=== PATIENT | male | born 1955 | race Caucasian/White ===

== ENCOUNTER 2020-04-06 07:35 | Emergency (ER) | payer OTHER, MEDICARE, SELFPAY ==
[2020-04-06] VITALS (7 sets, daily range): BP systolic 113–138; BP diastolic 59–85; PULSE 75–86; RESP 17–20; TEMP 36.7–36.8; O2SAT 18–98; BMI 34.2
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
--- NOTE | 2020-04-06 07:40 | XR_ITS ---
PROCEDURE: XR KNEE RT 3V CLINICAL INDICATION: fall Knee scratch COMPARISON: No exams were available for comparison FINDINGS: No fracture or dislocation. No lytic or blastic change. There is normal mineralization. The joint spaces are well-preserved. No significant degenerative/arthritic changes. No erosive changes evident. Other findings:None. IMPRESSION: No acute findings. Dictated by: Ignacio Mcwilliams MD 04/06/2020 08:55 Ignacio Mcwilliams MD in [facility] 04/06/2020 08:55
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
[2020-04-06 08:52] LABS: Chloride 100 mmol/L (98-107); Potassium 4.5 mmoL/L (3.5-5.1); Sodium 135 mmol/L (136-145)
[2020-04-06 08:55] LABS: Blood Urea Nitrogen 13 mg/dl (9-20); Creatinine Clearance Estimated 120 mL/min (50-200); Estimated Glomerular Filt Rate 84 ml/min (>60); GFR (African American) 102 ML/MIN (>60)
[2020-04-06 08:56] LABS: Alanine Aminotransferase 31 U/L (12-78); Albumin Level 3.5 g/dl (3.5-5.0); Alkaline Phosphatase 179 U/L (38-126); Anion Gap 9.5 mEq/L (5-15); Aspartate Amino Transferase 36 U/L (17-59); Bilirubin,Direct 0.2 mg/dl (0.0-0.4); Bilirubin,Indirect 0.4 mg/dL (0.0-0.9); Bilirubin,Total 0.6 mg/dl (0.2-1.3); Bilirubin,Unconjugated 0.4 mg/dL (0.0-1.1); Calcium 9.1 mg/dl (8.4-10.2); Carbon Dioxide 30 mmol/L (22.0-30.0); Glucose 146 mg/dl (74-100); Total Protein,Serum 7.6 g/dl (6.3-8.2)
[2020-04-06 08:57] LABS: Basophils # 0.1 K/mm3 (0-0.2); Basophils % 0.8 % (0.1-2.0); Eosinophils # 0.2 K/mm3 (0.0-0.4); Eosinophils % 3.1 % (0.1-12.0); Hematocrit 37.8 % (42.0-52.0); Hemoglobin 11.9 g/dL (14.1-18.0); Lymphocytes # 1.5 K/mm3 (0.7-4.5); Lymphocytes % 21.3 % (10-50); Mean Corpuscular HGB Conc 31.6 g/dL (31.8-35.4); Mean Corpuscular Hemoglobin 28.1 pg (27.0-31.2); Mean Corpuscular Volume 88.8 fl (80-94); Monocytes # 0.6 K/mm3 (0.1-1.0); Monocytes % 8.1 % (1.7-9.3); Neutrophils # 4.7 K/mm3 (1.8-7.8); Neutrophils % 66.8 % (37.0-80.0); Platelet Count 203 K/mm3 (142-424); Red Blood Count 4.25 M/mm3 (4.60-6.20); Red Cell Distribution Width 17.8 % (11.5-17.5)
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
--- NOTE | 2020-04-06 10:43 | PC.NURSE ---
vascular called for echo
--- NOTE | 2020-04-06 11:37 | PC.NURSE ---
bedside echo complete. awaiting disposition.
--- NOTE | 2020-04-06 12:00 | PC.NURSE ---
placed call to [facility] for Dr Kuo
--- NOTE | 2020-04-06 12:09 | PC.NURSE ---
DR Brown speaking with Dr Callahan PT Head Holder.
--- NOTE | 2020-04-06 12:15 | PC.NURSE ---
Dr Brown speaking with Lul MORAL[facility] Cardiology.
--- NOTE | 2020-04-06 12:16 | PC.NURSE ---
Addendum entered by Hyun Salinas, EMT 04/06/20 12:18: called at 1155 Original Note: [facility] called stating DR DAMON said ECHO revealed either Myxoma or Thrombus, Dr Brown advised
--- NOTE | 2020-04-06 12:19 | PC.NURSE ---
Dr Callahan paged again
--- NOTE | 2020-04-06 12:21 | ECG_ITS ---
APPROVED REPORT Exam: Resting ECG HR:87 bpm ECG Measurements Heart Rate 87 AXES QRSd 90 QRS 35 QT 396 T 150 QTc [address] & T wave abnormality, consider anterolateral ischemia or digitalis effect Prolonged QT Abnormal ECG Electronically signed by : Sourav Vazquez, 04/09/2020 11:27:04
--- NOTE | 2020-04-06 12:22 | PC.NURSE ---
DR Brown Speaking with Dr Callahan.
--- NOTE | 2020-04-06 12:24 | PC.NURSE ---
DA RAGSDALE speaking with CARMEN Sandoval for cardiology
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
== END 2020-04-06 13:57 | disposition home or self-care (01) ==
PROVIDERS: Emergency Provider Emergency Medicine; PCP Internal Medicine
DX: S02.2XXA Fracture of nasal bones, initial encounter for closed fracture (principal); S22.32XA Fracture of one rib, left side, initial encounter for closed fracture; V43.62XA Car passenger injured in collision with other type car in traffic accident, initial encounter; Y92.488 Other paved roadways as the place of occurrence of the external cause; S51.812A Laceration without foreign body of left forearm, initial encounter; S81.012A Laceration without foreign body, left knee, initial encounter; S81.011A Laceration without foreign body, right knee, initial encounter; I48.0 Paroxysmal atrial fibrillation; F17.210 Nicotine dependence, cigarettes, uncomplicated; R73.9 Hyperglycemia, unspecified; Z23 Encounter for immunization
CPT/HCPCS: 70450; 70486; 71250; 71275; 72125; 72128; 72131; 72170; 73090; 73562; 74177; 80048; 80076; 85025; 90471; 90715; 93005; 93306; 99284; Q9957; Q9967

== ENCOUNTER 2020-04-09 12:03 | Day surgery (SDC) | payer MEDICARE, SELFPAY ==
--- NOTE | 2020-04-09 12:07 | CA_ITS ---
APPROVED REPORT EXAM: Comprehensive 2D, Doppler, and color-flow Echocardiogram Aerodynamics Teacher: RT Maricruz(R) Ht: 6 ft 1 in Wt: 250lbs BSA: 2.37 BP: 117/58 mmHg Indications: mass in left atrium, afib, Hyperlipidemia, HTN Procedure After obtaining informed consent, patient underwent transesophageal echo in the [facility]. Type of Sedation : Conscious Sedation Sedation was administered by Bello [email or web address]. Transesophageal probe was inserted and advanced into esophagus without difficulty by Dr. Dylon Bell. The KRISHAN was performed without complications. Throughout the procedure, the blood pressure, pulse oximetry, cardiac rhythm, and rate were monitored. The patient tolerated the procedure without adverse effects. Recovery from conscious sedation was uneventful and vital signs were stable. Left Ventricle Left ventricle is normal size, mild concentric left ventricular hypertrophy, visually estimated ejection fraction 55% with no regional wall motion abnormality in the obtained views. Right Ventricle Right ventricle is mildly enlarged with normal contractility. Atria Left atrium is moderately enlarged, left atrial appendage free of thrombus, there is adequate appendage flow by spectral Doppler. Right atrium is mildly enlarged. 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 Agitated saline contrast reveals 25 intracardiac shunt. Aortic Valve Aortic valve is minimally thickened and fibrosed, there is no aortic stenosis or aortic insufficiency. Mitral Valve Mitral valve leaflets are minimally thickened, there is mild mitral regurgitation. Tricuspid Valve Tricuspid valve is grossly normal, there is mild tricuspid regurgitation. Pulmonic Valve Pulmonic valve is grossly normal. Great Vessels Aortic root is normal size. Ascending, arch and descending thoracic aorta there is no aneurysm or dissection. Pericardium No significant pericardial effusion noted. Conclusion 1. Biatrial enlargement. Normal left ventricular size, mild concentric left ventricular hypertrophy, visually estimated ejection fraction 55% with no regional wall motion abnormality. 2. 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 Agitated's saline contrast study fails to identify intracardiac shunt. 4. No significant pericardial effusion noted. Electronically signed by : Barry Chambers, 04/09/2020 13:26:12
[2020-04-09 12:08] VITALS: BMI 35.2
[2020-04-09 13:12] VITALS: RESP 20; O2SAT 100
[2020-04-09 13:14] LABS: Coronavirus 19 IgG Antibody Negative (Negative); Coronavirus 19 IgM Antibody Negative (Negative)
--- NOTE | 2020-04-09 13:21 | HMH.ANESCL ---
[facility] [place] Anesthesia Checklist - Patient Identification Patient Identification: Arm Band - Structural Data Admitted From: Home Planned Operative Procedure/s: KRISHAN Consent for Planned Operative Procedure(s) Verified: Yes Verified Documents: Surgical Consent, History and Physical - NPO Status Verified Time NPO: 00:00 - Additional verifications Anesthesia Reactions: No Hx Blood Transfusions: No Blood Transfusion Reaction: No - Airway Assessment C-Spine Mobility Assessed: Yes (mp2) TMJ Mobility Assessed: Yes Dentition: Edentulous - Neurological Assessment Level of Consciousness: Awake, Alert - Anesthesia Plan Anesthesia Risk discussed: Yes Anesthesia Plan: Verified ASA Class: III Anesthesia Type: MAC [facility] [place] History I have reviewed the patient's past medical history: Yes Medical History: Reports:: Atrial Fibrillation, Chronic Obstructive Pulmonary Disease (COPD), Coronary Artery Disease Denies:: Diabetes Mellitus Type 1, Diabetes Mellitus Type 2, Internal Pacemaker *Have you ever received a pneumonia vaccine?: Yes *Have you received a flu vaccine this season?: No Other Medical History: Reports: Liver Disease. Denies: Blood Transfusion Reaction Anesthesia experience/problems:: nac Other Surgeries: Yes: Coronary Stent. No: Pacemaker Amputation: No Fractures: No - *Social History Smoking Status: Current every day smoker Tobacco Type: cigarettes # Packs/Day (cigarettes): 1 Alcohol Intake: current Alcohol Intake Frequency:: a few times a week Substance Use Type: denies use *Occupational Status:: retired Household Members: spouse *[facility] in the [facility] Family Hx:: Hyperlipidemia, Hypertension
[2020-04-09 13:30] VITALS: BP 99/62; PULSE 71; RESP 20; O2SAT 100
[2020-04-09 13:46] VITALS: BP 103/69; PULSE 79; RESP 20; O2SAT 98
== END 2020-04-09 13:52 | disposition home or self-care (01) ==
LOC: CATHLAB 12:06
PROVIDERS: PCP Internal Medicine Infectious Disease; Visit Provider Internal Medicine Cardiovascular Disease
DX: I48.91 Unspecified atrial fibrillation (principal); I25.10 Atherosclerotic heart disease of native coronary artery without angina pectoris; I11.0 Hypertensive heart disease with heart failure; Z95.5 Presence of coronary angioplasty implant and graft; I50.9 Heart failure, unspecified; Z72.0 Tobacco use; Z79.899 Other long term (current) drug therapy; Z79.01 Long term (current) use of anticoagulants; I51.89 Other ill-defined heart diseases
CPT/HCPCS: 86328; 93312